=== PATIENT | male | born 1940 | race Caucasian/White ===

== ENCOUNTER 2025-06-15 11:06 | Inpatient (IN) | payer MEDICARE, OTHER ==
[~2025-06-15] VITALS: Ht 162.6 cm; Wt 65.8 kg
[2025-06-15 11:11] VITALS: BP 115/63; TEMP 98.4
[2025-06-15 11:58] VITALS: BP 115/63; TEMP 98.4
[2025-06-15 20:45] VITALS: BP 109/56; TEMP 98.5; O2SAT 93
[2025-06-15] MEDS ORDERED: BISACODYL 5 MG TABLET.DR PO PRN (21:30)
[2025-06-15] MEDS ORDERED: ACETAMINOPHEN 500 MG TABLET PO PRN (21:30)
[2025-06-15] MEDS ORDERED: COLLAGENASE OINT 30 GM TUBE TOP PRN (21:30)
[2025-06-15] MEDS ORDERED: DEXTROSE 50% 50 ML DISP.SYRIN IV PRN (21:30)
[2025-06-16] MEDS ORDERED: ACETAMINOPHEN 325 MG TABLET PO PRN (02:45)
[2025-06-16] MEDS: BENZOCAINE/MENTH/CETYLPYRD LOZENGE MM PRN (03:08)
[2025-06-16] MEDS ORDERED: SACU1TAB PO (03:33)
[2025-06-16 06:00] VITALS: BP 131/66; TEMP 98.2; O2SAT 95
[2025-06-16] MEDS: LEVOTHYROXINE SODIUM 50 MCG TABLET PO SCH (06:11)
[2025-06-16] MEDS ORDERED: BISACODYL 5 MG TABLET.DR PO PRN (07:00)
[2025-06-16 07:08] LABS: PLATELET COUNT (AUTO) 150 K/uL (152-348); RED CELL DISTRIBUTION WIDTH 17.3 % (12.1-16.2); WHITE BLOOD COUNT (AUTO) 2.9 K/uL (3.6-10.2)
[2025-06-16] MEDS: BLOOD SUGAR DIAGNOSTIC 1 EACH STRIP VI SCH (07:17)
[2025-06-16 07:26] LABS: RED BLOOD CELL COUNT(AUTO) 2.46 MIL/uL (4.06-5.63)
[2025-06-16 07:50] VITALS: BP 111/50; TEMP 97.5; O2SAT 97
[2025-06-16] MEDS: CLOPIDOGREL 75 MG TABLET PO SCH (08:21)
[2025-06-16] MEDS: ASPIRIN 81 MG TAB.CHEW PO SCH (08:21)
[2025-06-16] MEDS: MIRALAX 17 GM POWD.PACK PO SCH (08:21)
[2025-06-16] MEDS: CARVEDILOL 6.25 MG TABLET PO SCH (08:22)
[2025-06-16 08:30] LABS: EOSINOPHILS % (MANUAL) 2 % (0-8); LYMPHOCYTES % (MANUAL) 23 % (20-40); MONOCYTES % (MANUAL) 4 % (2-10); NEUTROPHILS % (MANUAL) 71 % (42-75)
[2025-06-16 08:31] LABS: PLATELET ESTIMATE DECREASED
[2025-06-16] MEDS ORDERED: ATOR40TA PO (09:25)
[2025-06-16] MEDS ORDERED: TAMS-3 PO (09:25)
[2025-06-16] MEDS ORDERED: POLY17PO4 PO (09:25)
[2025-06-16] MEDS ORDERED: ASPI81TA31 PO (09:25)
[2025-06-16] MEDS ORDERED: ACET325T53 PO (09:25)
[2025-06-16] MEDS ORDERED: BISA-79 PO (09:25)
[2025-06-16] MEDS ORDERED: SENN1TAB59 PO (09:29)
[2025-06-16] MEDS ORDERED: CLOP75TA15 PO (09:29)
[2025-06-16] MEDS ORDERED: LEVO50TA8 PO (09:29)
[2025-06-16] MEDS ORDERED: DIGO125T PO (09:29)
[2025-06-16] MEDS ORDERED: EZET10TA15 PO (09:29)
[2025-06-16] MEDS ORDERED: INSU100I4 SQ (09:29)
[2025-06-16] MEDS: SACUBITRIL/VALSARTAN 24 MG-26 TABLET PO SCH (11:09)
[2025-06-16] MEDS: INSULIN REGULAR, HUMAN 1000 UNIT/10 ML VIAL SQ PRN (11:55)
[2025-06-16] MEDS: DIGOXIN 125 MCG TABLET PO SCH (13:31)
[2025-06-16 16:25] VITALS: BP 114/49; TEMP 98.1; O2SAT 95
[2025-06-16] MEDS: ATORVASTATIN 40 MG TABLET PO SCH (21:04)
[2025-06-16] MEDS: TAMSULOSIN HCL 0.4 MG CAP.SR.24H PO SCH (21:04)
[2025-06-16] MEDS: EZETIMIBE 10 MG TABLET PO SCH (21:05)
[2025-06-16] MEDS: SENNOSIDES 1 TABLET PO SCH (21:05)
[2025-06-17 06:00] VITALS: BP 105/37; TEMP 98.5; O2SAT 95
[2025-06-17 08:24] VITALS: BP 109/50; TEMP 98.2; O2SAT 95
[2025-06-17 16:06] VITALS: BP 99/47; TEMP 98.2; O2SAT 95
[2025-06-17] MEDS: MEDIHONEY= THERAHONEY 1.5 OZ TUBE TOP PRN (18:13)
[2025-06-18 05:54] VITALS: BP 101/50; TEMP 98.6; O2SAT 95
[2025-06-18 07:50] VITALS: BP 133/60; TEMP 97.6; O2SAT 97
[2025-06-18] MEDS: MUPIROCIN 2% OINT 22 GM TUBE NS SCH (10:57)
[2025-06-18] MEDS: EPOETIN ALFA-EPBX 10,000 UNIT/ML VIAL SQ ONE (15:29)
[2025-06-18 18:12] VITALS: BP 115/56; TEMP 98.4; O2SAT 98
[2025-06-18] MEDS: INSULIN REGULAR, HUMAN 300 UNITS/3 ML VIAL SQ PRN (20:41)
[2025-06-18 21:32] VITALS: BP 102/34; TEMP 98.5; O2SAT 94
[2025-06-19 06:12] VITALS: BP 100/45; TEMP 98.2; O2SAT 99
[2025-06-19 07:48] VITALS: BP 137/70; TEMP 98.3; O2SAT 99
[2025-06-19 08:23] LABS: PLATELET COUNT (AUTO) 168 K/uL (152-348); RED CELL DISTRIBUTION WIDTH 17.9 % (12.1-16.2); WHITE BLOOD COUNT (AUTO) 3.3 K/uL (3.6-10.2)
[2025-06-19 08:24] LABS: RED BLOOD CELL COUNT(AUTO) 2.46 MIL/uL (4.06-5.63)
[2025-06-19 08:31] LABS: IRON, SERUM 30 ug/dL (50-175)
[2025-06-19 08:56] LABS: CREATININE 1.6 mg/dL (0.6-1.3); SODIUM SERUM 131 mmol/L (136-145); UREA NITROGEN, BLOOD 36 mg/dL (7-18)
[2025-06-19 16:00] VITALS: BP 98/43; TEMP 98.6; O2SAT 98
[2025-06-19 21:24] VITALS: BP 94/49; TEMP 98.1; O2SAT 98
[2025-06-20] VITALS (8 sets, daily range): BP systolic 107–132; BP diastolic 50–73; TEMP 97.6–98.5; O2SAT 98–99
[2025-06-20 08:24] LABS: PLATELET COUNT (AUTO) 168 K/uL (152-348); RED CELL DISTRIBUTION WIDTH 17.5 % (12.1-16.2); WHITE BLOOD COUNT (AUTO) 3.2 K/uL (3.6-10.2)
[2025-06-20 08:28] LABS: RED BLOOD CELL COUNT(AUTO) 2.30 MIL/uL (4.06-5.63)
[2025-06-20 08:45] LABS: CREATININE 1.6 mg/dL (0.6-1.3); SODIUM SERUM 135 mmol/L (136-145); UREA NITROGEN, BLOOD 34 mg/dL (7-18)
[2025-06-21 05:00] VITALS: BP 124/63; TEMP 98.3; O2SAT 99
[2025-06-21 08:00] VITALS: BP 112/48; TEMP 97.7; O2SAT 99
[2025-06-21 08:21] LABS: PLATELET COUNT (AUTO) 165 K/uL (152-348); RED BLOOD CELL COUNT(AUTO) 2.58 MIL/uL (4.06-5.63); RED CELL DISTRIBUTION WIDTH 19.3 % (12.1-16.2); WHITE BLOOD COUNT (AUTO) 3.2 K/uL (3.6-10.2)
[2025-06-21 08:36] LABS: CREATININE 1.5 mg/dL (0.6-1.3); SODIUM SERUM 131 mmol/L (136-145); UREA NITROGEN, BLOOD 36 mg/dL (7-18)
[2025-06-21 17:00] VITALS: BP 123/57; TEMP 97.7; O2SAT 98
[2025-06-21 21:20] VITALS: BP 104/45; TEMP 98; O2SAT 98
[2025-06-22 06:55] VITALS: BP 115/52; TEMP 98.1; O2SAT 97
[2025-06-22 07:45] VITALS: BP 131/64; TEMP 97.6; O2SAT 98
[2025-06-22 16:00] VITALS: BP 111/54; TEMP 98.2; O2SAT 99
[2025-06-22 20:00] VITALS: BP 112/57; TEMP 98; O2SAT 97
[2025-06-23 05:00] VITALS: BP 114/54; TEMP 97.7; O2SAT 98
[2025-06-23 07:14] LABS: PLATELET COUNT (AUTO) 167 K/uL (152-348); RED BLOOD CELL COUNT(AUTO) 2.58 MIL/uL (4.06-5.63); RED CELL DISTRIBUTION WIDTH 19.2 % (12.1-16.2); WHITE BLOOD COUNT (AUTO) 3.1 K/uL (3.6-10.2)
[2025-06-23 07:32] LABS: CREATININE 1.6 mg/dL (0.6-1.3); SODIUM SERUM 133 mmol/L (136-145); UREA NITROGEN, BLOOD 40 mg/dL (7-18)
[2025-06-23 08:00] VITALS: BP 130/59; TEMP 97.5; O2SAT 99
[2025-06-23 16:37] VITALS: BP 103/47; TEMP 98.1; O2SAT 99
[2025-06-23 22:42] VITALS: BP 116/57; TEMP 97.9; O2SAT 97
[2025-06-24 07:26] VITALS: BP 103/54; TEMP 98; O2SAT 99
[2025-06-24 07:34] VITALS: BP 121/60; TEMP 97.3; O2SAT 97
[2025-06-24 16:00] VITALS: BP 116/50; TEMP 97.6; O2SAT 98
[2025-06-24 20:04] VITALS: BP 113/45; TEMP 97.4; O2SAT 98
[2025-06-25 06:53] VITALS: BP 104/47; TEMP 97.3; O2SAT 98
[2025-06-25 07:30] VITALS: BP 97/47; TEMP 97.6; O2SAT 99
[2025-06-25 16:00] VITALS: BP 104/58; TEMP 98.2; O2SAT 99
[2025-06-25 19:59] VITALS: BP 111/49; TEMP 98.6; O2SAT 97
[2025-06-26 05:00] VITALS: BP 108/54; TEMP 98.2; O2SAT 99
[2025-06-26 08:00] VITALS: BP 97/58; TEMP 98.4; O2SAT 98
[2025-06-26 08:10] LABS: PLATELET COUNT (AUTO) 183 K/uL (152-348); RED BLOOD CELL COUNT(AUTO) 2.56 MIL/uL (4.06-5.63); RED CELL DISTRIBUTION WIDTH 19.3 % (12.1-16.2); WHITE BLOOD COUNT (AUTO) 3.6 K/uL (3.6-10.2)
[2025-06-26 08:29] LABS: CREATININE 1.6 mg/dL (0.6-1.3); SODIUM SERUM 135 mmol/L (136-145); UREA NITROGEN, BLOOD 40 mg/dL (7-18)
[2025-06-26 17:00] VITALS: BP 132/45; TEMP 98.1; O2SAT 100
[2025-06-26 23:50] VITALS: BP 102/37; TEMP 98.4; O2SAT 98
[2025-06-27 07:18] VITALS: BP 103/55; TEMP 98.6; O2SAT 98
[2025-06-27 08:07] VITALS: BP 114/52; TEMP 98.6; O2SAT 98
[2025-06-27 11:29] LABS: *BILIRUBIN,URIN NEGATIVE (NEGATIVE); *BLOOD, URINE 1+ (NEGATIVE); *CLARITY,URINE TURBID (CLEAR); *KETONES,URINE NEGATIVE (NEGATIVE); *PROTEIN,URINE 2+ (NEGATIVE); *UROBILINOGEN,URINE 0.2 E.U./dl (NORMAL); LEUKOCYTE ESTERASE ,URINE 3+ (NEGATIVE); NITRITE, URINE NEGATIVE (NEGATIVE); UGLUCOSE NEGATIVE (NEGATIVE)
[2025-06-27 11:44] LABS: URINE AMORPHOUS URATE MANY /HPF
[2025-06-27 16:02] VITALS: BP 96/44; TEMP 98.9; O2SAT 98
[2025-06-27 20:00] VITALS: BP 96/44; TEMP 98.9; O2SAT 98
[2025-06-28] VITALS (9 sets, daily range): BP systolic 102–122; BP diastolic 39–61; TEMP 98.4–99.2; O2SAT 98–99
[2025-06-28 08:21] LABS: PLATELET COUNT (AUTO) 164 K/uL (152-348); RED CELL DISTRIBUTION WIDTH 19.6 % (12.1-16.2); WHITE BLOOD COUNT (AUTO) 2.8 K/uL (3.6-10.2)
[2025-06-28 08:22] LABS: CREATININE 1.6 mg/dL (0.6-1.3); RED BLOOD CELL COUNT(AUTO) 2.47 MIL/uL (4.06-5.63); SODIUM SERUM 133 mmol/L (136-145); UREA NITROGEN, BLOOD 36 mg/dL (7-18)
[2025-06-28 09:26] LABS: LYMPHOCYTES % (MANUAL) 0 % (20-40); NEUTROPHILS % (MANUAL) 0 % (42-75)
[2025-06-29 06:00] VITALS: BP 105/44; TEMP 98.6; O2SAT 97
[2025-06-29 07:53] VITALS: BP 114/60; TEMP 97.2; O2SAT 99
[2025-06-29 08:33] VITALS: BP 114/60
== END 2025-06-29 15:45 | DRG 281 ==
LOC: UNDODISIN 06-29 15:45
PROVIDERS: ADMIT Physical Medicine & Rehabilitation Pain Medicine; ATTEND Physical Medicine & Rehabilitation Pain Medicine
PROC: 30233N1 Transfusion of Nonautologous Red Blood Cells into Peripheral Vein, Percutaneous Approach (ICD-10-PCS; principal; 2025-06-20)
PROC: 30233N1 Transfusion of Nonautologous Red Blood Cells into Peripheral Vein, Percutaneous Approach (ICD-10-PCS; 2025-06-28)
DX: I21.4 Non-ST elevation (NSTEMI) myocardial infarction (principal); G72.81 Critical illness myopathy; N17.9 Acute kidney failure, unspecified; Z95.1 Presence of aortocoronary bypass graft; D64.9 Anemia, unspecified; I50.9 Heart failure, unspecified; Z95.5 Presence of coronary angioplasty implant and graft; R53.1 Weakness; Z89.512 Acquired absence of left leg below knee; I25.5 Ischemic cardiomyopathy; I25.10 Atherosclerotic heart disease of native coronary artery without angina pectoris; I73.9 Peripheral vascular disease, unspecified; N18.9 Chronic kidney disease, unspecified; E03.9 Hypothyroidism, unspecified; E78.5 Hyperlipidemia, unspecified; Z82.49 Family history of ischemic heart disease and other diseases of the circulatory system; Z83.3 Family history of diabetes mellitus; S90.31XA Contusion of right foot, initial encounter; X58.XXXA Exposure to other specified factors, initial encounter; Y93.9 Activity, unspecified; Y92.89 Other specified places as the place of occurrence of the external cause
CPT/HCPCS: 36415; 70030-TC; 83550; 83735; 84100; 85025; 86850; 86900; 86901; 86920; 87077; 87086; 97535-GO-CO; A4663; A6209; J0696; J0885; J1815; J7040; J7060; P9016